=== PATIENT | female | born 1985 | race Caucasian/White ===

== ENCOUNTER 2016-09-11 05:46 | Inpatient (IN) | payer OTHER ==
[~2016-09-11] VITALS: Ht 161.3 cm; Wt 99.1 kg
[2016-09-11] MEDS ORDERED: LACTATED RINGER'S 1,000 ML IV SCH (05:58)
[2016-09-11] MEDS ORDERED: CARBOPROST 250 MCG INJ IM PRN ×2 (06:00→16:30)
[2016-09-11] MEDS ORDERED: OXYTOCIN 30 UNITS/LR 500 ML IV PRN ×2 (06:00→16:30)
[2016-09-11] MEDS ORDERED: MISOPROSTOL 200 MCG TAB PR PRN ×2 (06:00→16:30)
[2016-09-11] MEDS ORDERED: CEFAZOLIN 2 GM/50 ML (PMX) 50 ML IV SCH (06:00)
[2016-09-11] MEDS ORDERED: METHYLERGONOVINE 0.2 MG INJ IM PRN ×2 (06:00→16:30)
[2016-09-11 06:01] VITALS: Ht 161.3 cm; Wt 99.1 kg
[2016-09-11 06:07] VITALS: BP 126/69; PULSE 77; RESP 18
[2016-09-11 07:13] LABS: ADD SCAN DIFF NO
[2016-09-11 07:16] LABS: BASOPHILS % 0.3 % (0.0-2.0); EOSINOPHILS # 0.1 10^3/ul (0.0-0.5); EOSINOPHILS % 1.4 % (0.0-7.0); HEMATOCRIT 36.3 % (37.0-47.0); HEMOGLOBIN 12.3 g/dl (12.0-16.0); LYMPHOCYTES # 2.3 10^3/ul (0.8-2.9); LYMPHOCYTES % 25.9 % (15.0-51.0); MEAN CORPUSCULAR HEMOGLOBIN 29.5 pg (29.0-33.0); MEAN CORPUSCULAR HGB CONC 33.9 g/dl (32.0-37.0); MEAN CORPUSCULAR VOLUME 87.1 fl (82.0-101.0); MEAN PLATELET VOLUME 11.2 fl (7.4-10.4); MONOCYTE # 0.7 10^3/ul (0.3-0.9); MONOCYTES % 7.5 % (0.0-11.0); NEUTROPHIL # 5.6 10^3/ul (1.6-7.5); NEUTROPHILS % 64.2 % (39.0-77.0); PLATELET COUNT 201 10^3/UL (140-415); RED BLOOD COUNT 4.17 10^6/ul (4.20-5.40); RED CELL DISTRIBUTION WIDTH 13.2 % (11.5-14.5); WHITE BLOOD COUNT 8.7 10^3/ul (4.8-10.8)
[2016-09-11 07:33] LABS: INR 0.96; PROTIME 12.8 Sec (12.2-14.2)
[2016-09-11 07:34] LABS: PARTIAL THROMBOPLASTIN TIME 27.6 Sec (25.0-35.0)
[2016-09-11] MEDS ORDERED: ONDANSETRON 4 MG INJ IV STA (11:00)
[2016-09-11] MEDS ORDERED: CITRIC ACID/SODIUM CITRATE 15 ML CUP PO ONE ×2 (11:00)
[2016-09-11] MEDS ORDERED: METOCLOPRAMIDE 10 MG INJ IV ONE (11:00)
[2016-09-11] MEDS ORDERED: morphine SULFATE/PF (10 MG/10 ML) INJ ONE (12:07)
[2016-09-11] MEDS ORDERED: FENTAnyl 50 MCG/ML VIAL ONE (12:07)
[2016-09-11] MEDS ORDERED: EPHEDrine SULFATE 50 MG/5 ML SYG ONE (12:21)
[2016-09-11] MEDS ORDERED: PHENYLephrine (100 MCG/ML) 5ML SYG ONE (12:22)
[2016-09-11] MEDS ORDERED: HYDROmorphONE 1 MG/ML SYG IV PRN ×2 (13:00)
[2016-09-11] MEDS ORDERED: DIPHENHYDRAMINE 50 MG INJ IV PRN (13:00)
[2016-09-11] MEDS ORDERED: NALOXONE (0.4 MG/ML) INJ IV PRN (13:00)
[2016-09-11] MEDS ORDERED: ONDANSETRON 4 MG INJ IV PRN (13:00)
[2016-09-11] MEDS: OXYTOCIN 30 UNITS/LR 500 ML IV SCH ×3 (15:02→16:29)
--- NOTE | 2016-09-11 15:23 | HP ---
Date/Time of Note Date/Time of Note DATE: 09/11/16 TIME: 15:04 OB - History Hx of Present Free Text/Dictation 30 years old female 4 para 2 AB 1 history of 1 previous section admitted to [facility] at 39 weeks gestation for repeat this patient has been under the care of [facility] and her was not complicated with gestational diabetes - induced hypertension or any other surgical or medical condition. 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12 total ,of 4 ,one normal vaginal delivery , one one termination no other surgery or hospitalization recorded in the patient's records Infectious history positive tests for chlamydia and gonorrhea 3 weeks ago treated with antibiotics Genetic history negative for hereditary disease Allergy denies allergy to any known medication Social habit denies a smoking or drinking or using illicit drugs Review of system within normal Physical examination 5 feet 4 218 pounds total weight gain during the 31 pound Blood pressure 106/51 pulse 81 respiration 18 temperature 98.1 Head ears nose and throat negative Neck supple no thyromegaly Lungs clear to P&A Heart normal sinus rhythm no murmur Abdomen fundal height 37 cm from symphysis pubis heart rate category 1 Pelvic examination deferred Extremities no edema no varicosities Impression Intrauterine at 39 weeks gestation history of previous section patient has signed consent for repeat section she is aware of the complication of surgery including bowel bladder injury infection hemorrhage and hematoma and she is willing to go ahead with this procedure Chief Complaint: 39 weeks history of previous Estimated Due Date: Sep 18, 2016 : 4 Para: 2 Therapeutic : 1 Care: Limited Care Ultrasounds: Normal mid trimester US Obstetrical Complications: None Medical Complications: None Past Family/Social History * Past Medical, Surgical, Family and Obstetric Histories reviewed from chart. Rubella: immune RPR/VDRL: Negative GBS Status: Negative HBsAG: Negative OB Admission Exam Vital Signs Vital Signs Vital Signs Date Time Temp Pulse Resp B/P Pulse Ox O2 Delivery O2 Flow Rate FiO2 09/11/16 06:07 98.6 77 18 126/69 Room Air Physical Exam HEENT: WNL Heart: Rhythm Normal Lungs: Clear, Equal Abdomen: WNL Extremities: Normal Reflexes: Normal Cervical Dilatation: None Effacement: 0% Heart Rate: 130's Accelerations: Accelerations Present Decelerations: No Decelerations Contractions on Admission: None Last 72 hours Lab Results CBC & BMP 09/11/16 06:15 OB Assessment/Plan Reason for admission: other (Repeat section) NASRIN FISCHER MD Sep 11, 2016 15:21
--- NOTE | 2016-09-11 15:57 | OPR ---
DATE OF OPERATION: PREOPERATIVE DIAGNOSES: 1. Intrauterine at 39 weeks' gestation. 2. History of previous section. POSTOPERATIVE DIAGNOSES 1. Intrauterine at 39 weeks' gestation. 2. History of previous section. PROCEDURE: Repeat transverse low cervical section. SURGEON: Nasrin Fischer MD CLINICAL SUPPORT NURSE: Mirza Sandoval MD ANESTHESIA: Spinal. ANESTHESIOLOGIST: Dr. Young. FINDINGS: Live baby girl, Apgars 8 and 9. Baby weighed 8 pounds, equal to 3625 grams. DETAILS OF THE PROCEDURE: Under satisfactory spinal anesthesia, the patient was prepped and draped and placed in supine position, tilted to the left. Pfannenstiel incision was made, carried through the subcutaneous tissue. Bleeders brought under control with electrocautery. Fascia incised to the length of the incision. Rectus muscle divided in midline. Peritoneum exposed, entered through a t ransverse incision. Exploration of abdomen. Gravid uterus at term, normal appearing tubes and ovar ies, extremely thinned out lower segment of the uterus to the thickness of 1 mm. Bladder flap gentl y was developed and a transverse incision was made in the lower segment of the uterus. Amniotic sac ruptured. Clear amniotic fluid noted. Live baby girl was delivered from unengaged vertex. Nasal oropharyngeal suction was performed. Baby handed to the team for immediate attention. Pat ient received 20 units of Pitocin. Placenta delivered manually intact. Uterine cavity cleaned with wet sponge and drainage established. Uterus closed in 2 layers using Monocryl #1 in continuous fas hion. Peritoneal cavity irrigated with warm saline. Sponge, needle and instrument reported to be c orrect. Abdominal peritoneum closed with 2-0 chromic catgut continuously. Rectus muscle approximat ed with few interrupted 2-0 chromic catgut. Fascia closed with PDS #1 in continuous fashion. Subcu taneous tissue approximated with several interrupted 2-0 chromic catgut. Skin closed with emiliano. Estimated blood loss 700 mL. Urine bag contained 300 mL of clear urine. Patient tolerated procedu re well, transferred to recovery room in a good condition. Dictated By: NASRIN FISCHER MD HF/NTS Conf#: [id number] DID#: [id number]
[2016-09-11] MEDS: KETOROLAC 30 MG INJ IV PRN (15:59)
[2016-09-11] MEDS ORDERED: ACETAMINOPHEN/CODEINE #3 TAB PO PRN ×2 (16:30)
[2016-09-11] MEDS ORDERED: OXYCODONE/ACETAMINOPHEN (5/325) TAB PO PRN (16:30)
[2016-09-11] MEDS ORDERED: CEFAZOLIN 1 GM/50 ML (PMX) 50 ML IVPB SCH ×2 (16:30→20:00)
[2016-09-11] MEDS ORDERED: LANOLIN 7 GM TUBE TOP PRN (16:30)
[2016-09-11 17:00] VITALS: BP 126/67; PULSE 94; RESP 18
[2016-09-11] MEDS: IBUPROFEN 600 MG TAB PO SCH (17:12)
[2016-09-11 17:32] VITALS: BP 127/66; PULSE 94
[2016-09-11 18:00] VITALS: BP 123/65; PULSE 94
[2016-09-11 18:39] VITALS: BP 123/65; PULSE 79
[2016-09-11 20:00] VITALS: BP 136/66; PULSE 80; RESP 18
[2016-09-11] MEDS: SENNA/DOCUSATE NA (8.6MG/50MG) TAB PO SCH (21:00)
[2016-09-12] VITALS: BP 101/60; PULSE 79; RESP 18
[2016-09-12] MEDS: OXYTOCIN 30 UNITS/LR 500 ML IV SCH ×4 (00:29→08:29)
[2016-09-12] MEDS: KETOROLAC 30 MG INJ IV PRN ×2 (01:08→10:52)
[2016-09-12 04:00] VITALS: BP 111/52; PULSE 84; RESP 18
[2016-09-12 08:09] LABS: ADD SCAN DIFF NO
[2016-09-12 08:10] VITALS: BP 109/55; PULSE 93; RESP 19
[2016-09-12 08:16] LABS: BASOPHILS % 0.4 % (0.0-2.0); EOSINOPHILS # 0.1 10^3/ul (0.0-0.5); EOSINOPHILS % 1.7 % (0.0-7.0); HEMATOCRIT 30.6 % (37.0-47.0); HEMOGLOBIN 10.2 g/dl (12.0-16.0); LYMPHOCYTES # 1.3 10^3/ul (0.8-2.9); LYMPHOCYTES % 16.6 % (15.0-51.0); MEAN CORPUSCULAR HEMOGLOBIN 29.4 pg (29.0-33.0); MEAN CORPUSCULAR HGB CONC 33.3 g/dl (32.0-37.0); MEAN CORPUSCULAR VOLUME 88.2 fl (82.0-101.0); MEAN PLATELET VOLUME 10.5 fl (7.4-10.4); MONOCYTE # 0.6 10^3/ul (0.3-0.9); MONOCYTES % 7.7 % (0.0-11.0); NEUTROPHIL # 5.6 10^3/ul (1.6-7.5); NEUTROPHILS % 73.2 % (39.0-77.0); PLATELET COUNT 162 10^3/UL (140-415); RED BLOOD COUNT 3.47 10^6/ul (4.20-5.40); RED CELL DISTRIBUTION WIDTH 13.3 % (11.5-14.5); WHITE BLOOD COUNT 7.6 10^3/ul (4.8-10.8)
[2016-09-12] MEDS: SENNA/DOCUSATE NA (8.6MG/50MG) TAB PO SCH ×2 (10:52→21:04)
--- NOTE | 2016-09-12 11:41 | PN ---
Date/Time of Note Date/Time of Note DATE: 09/12/16 TIME: 11:40 OB Subjective Subjective Subjective Post day 1 Afebrile vital signs are stable abdomen soft mildly distended good bowel sounds incision dry lochia moderate extremity normal ambulation encouraged diet as tolerated. Laboratory Tests Test 09/12/16 08:05 White Blood Count 7.610^3/ul Red Blood Count 3.4710^6/ul Hemoglobin 10.2g/dl Hematocrit 30.6% Mean Corpuscular Volume 88.2fl Mean Corpuscular Hemoglobin 29.4pg Mean Corpuscular Hemoglobin Concent 33.3g/dl Red Cell Distribution Width 13.3% Platelet Count 95161^3/UL Mean Platelet Volume 10.5fl Neutrophils % 73.2% Lymphocytes % 16.6% Monocytes % 7.7% Eosinophils % 1.7% Basophils % 0.4% Nucleated Red Blood Cells % 0.0/100WBC Neutrophils # 5.610^3/ul Lymphocytes # 1.310^3/ul Monocytes # 0.610^3/ul Eosinophils # 0.110^3/ul Basophils # 0.010^3/ul Nucleated Red Blood Cells # 0.010^3/ul Current Medications Medications (Trade) Dose Ordered Sig/Ramon Route PRN Reason Start Time Stop Time Status Last Admin Dose Admin Lactated Ringer's 1,000 ml @ 125 mls/hr Q8H IV 09/11/16 05:58 09/11/16 16:34 DC 09/11/16 11:45 Cefazolin Sodium/ Dextrose 50 ml @ 100 mls/hr ONCE IV 09/11/16 06:00 09/11/16 16:34 DC Oxytocin/Lactated Ringer's 500 ml @ 125 mls/hr ONCE IV 09/11/16 06:00 09/11/16 16:34 DC 09/11/16 16:01 Oxytocin/Lactated Ringer's 500 ml @ 0 mls/hr ONCE PRN IV For Hemorrhage Management 09/11/16 06:00 09/11/16 16:34 DC Methylergonovine Maleate (Methergine) 0.2 mg ONCE PRN IM VAGINAL BLEEDING 09/11/16 06:00 09/11/16 16:34 DC Carboprost Tromethamine (Hemabate) 250 mcg ONCE PRN IM VAGINAL BLEEDING 09/11/16 06:00 09/11/16 16:34 DC Misoprostol (Cytotec) 1,000 mcg ONCE PRN MS VAGINAL BLEEDING 09/11/16 06:00 09/11/16 16:34 DC Citric Acid/ Sodium Citrate (Bicitra) 15 ml ONCE ONCE PO 09/11/16 11:00 09/11/16 11:07 DC 09/11/16 11:45 Citric Acid/ Sodium Citrate (Bicitra) 15 ml ONCE ONCE PO 09/11/16 11:00 09/11/16 11:07 DC 09/11/16 11:45 Ondansetron HCl (Zofran Inj) 4 mg ONCE STAT IV 09/11/16 11:00 09/11/16 11:07 DC 09/11/16 11:45 Metoclopramide HCl (Reglan) 10 mg ONCE ONCE IV 09/11/16 11:00 09/11/16 11:07 DC 09/11/16 11:45 Morphine Sulfate (Duramorph) 10 mg STK-MED ONCE .ROUTE 09/11/16 12:07 09/11/16 12:08 DC Fentanyl (Sublimaze) 100 mcg STK-MED ONCE .ROUTE 09/11/16 12:07 09/11/16 12:08 DC Ephedrine Sulfate 50 mg STK-MED ONCE .ROUTE 09/11/16 12:21 09/11/16 12:22 DC Phenylephrine HCl (Derian-Synephrine Inj Syg) 500 mcg STK-MED ONCE .ROUTE 09/11/16 12:22 09/11/16 12:23 DC Naloxone HCl (Narcan) 0.1 mg Q2M PRN IV FOR RESP RATE 8 OR LESS 09/11/16 13:00 09/12/16 12:59 Ketorolac Tromethamine (Toradol) 30 mg Q6H PRN IV PAIN 09/11/16 13:00 09/12/16 12:59 09/12/16 10:52 Hydromorphone HCl (Dilaudid) 0.2 mg Q3H PRN IV PAIN LEVEL 1-5 09/11/16 13:00 09/12/16 12:59 Hydromorphone HCl (Dilaudid) 0.4 mg Q3H PRN IV PAIN LEVEL 6-10 09/11/16 13:00 09/12/16 12:59 Diphenhydramine HCl (Benadryl) 25 mg Q6H PRN IV ITCHING 09/11/16 13:00 09/12/16 12:59 09/12/16 01:45 Ondansetron HCl (Zofran Inj) 4 mg Q6H PRN IV NAUSEA AND/OR VOMITING 09/11/16 13:00 09/12/16 12:59 Acetaminophen/ Codeine Phosphate (Tylenol No.3) 1 tab Q4H PRN PO PAIN LEVEL 4-6 09/11/16 16:30 Acetaminophen/ Codeine Phosphate (Tylenol No.3) 2 tab Q4H PRN PO PAIN LEVEL 7-10 09/11/16 16:30 Oxycodone/ Acetaminophen (Percocet (5/ 325)) 1 tab Q4H PRN PO PAIN LEVEL 4-6 09/11/16 16:30 Oxycodone/ Acetaminophen (Percocet (5/ 325)) 2 tab Q4H PRN PO PAIN LEVEL 7-10 09/11/16 16:30 Ibuprofen (Motrin) 600 mg Q6 PO 09/11/16 18:00 Simethicone (Mylicon) 160 mg Q8H PRN PO DISTENSION/GAS/BLOATING 09/11/16 16:30 Senna/Docusate Sodium (Senokot-S) 1 tab BID PO 09/11/16 21:00 09/12/16 10:52 Lanolin (Kny-X-Piixyx) 1 applic BEDSIDE MEDICATION PRN TOP BEDSIDE FOR ERICK TO NIPPLES 09/11/16 16:30 Diphtheria/ Tetanus/Acell Pertussis 0.5 ml 0.5 ml ONCE ONCE IM* 09/14/16 09:00 09/14/16 09:01 Oxytocin/Lactated Ringer's 500 ml @ 0 mls/hr ONCE PRN IV For Hemorrhage Management 09/11/16 16:30 Methylergonovine Maleate (Methergine) 0.2 mg ONCE PRN IM VAGINAL BLEEDING 09/11/16 16:30 Carboprost Tromethamine (Hemabate) 250 mcg ONCE PRN IM VAGINAL BLEEDING 09/11/16 16:30 Misoprostol 1000 mcg 1,000 mcg ONCE PRN MS VAGINAL BLEEDING 09/11/16 16:30 Cefazolin Sodium 50 ml @ 100 mls/hr ONCE IVPB 09/11/16 16:30 09/11/16 16:44 DC Oxytocin/Lactated Ringer's 500 ml @ 125 mls/hr Q4H IV 09/11/16 16:29 09/12/16 02:03 Cefazolin Sodium (Ancef 1 Gm/50 ml (Pmx)) 50 ml @ 100 mls/hr ONCE IVPB 09/11/16 20:00 09/11/16 20:29 DC 09/11/16 20:45 NASRIN FISCHER MD Sep 12, 2016 11:41
[2016-09-12 12:08] VITALS: BP 119/66; PULSE 77; RESP 19
[2016-09-12] MEDS: OXYCODONE/ACETAMINOPHEN (5/325) TAB PO PRN (13:56)
[2016-09-12] MEDS: IBUPROFEN 600 MG TAB PO SCH ×4 (13:56→23:29)
[2016-09-12 19:30] VITALS: BP 106/61; PULSE 69; RESP 19
[2016-09-13] MEDS: IBUPROFEN 600 MG TAB PO SCH ×5 (00:22→23:35)
[2016-09-13 04:00] VITALS: BP 120/64; PULSE 85; RESP 20
[2016-09-13 08:00] VITALS: BP 111/58; PULSE 87; RESP 18
[2016-09-13] MEDS: SENNA/DOCUSATE NA (8.6MG/50MG) TAB PO SCH ×2 (09:00→20:45)
--- NOTE | 2016-09-13 09:48 | PN ---
Date/Time of Note Date/Time of Note DATE: 09/13/16 TIME: 09:47 OB Subjective Subjective Subjective Post date Afebrile vital signs stable abdomen soft incision dry bowel sounds present no bowel movement extremity normal ambulation encouraged NASRIN FISCHER MD Sep 13, 2016 09:48
[2016-09-13] MEDS ORDERED: NA PHOSPHATE/BIPHOS 133 ML ENEMA PR ONE (10:00)
[2016-09-13] MEDS: OXYCODONE/ACETAMINOPHEN (5/325) TAB PO PRN ×2 (10:07→20:45)
[2016-09-13 16:00] VITALS: BP 106/53; PULSE 87; RESP 17
[2016-09-13 19:40] VITALS: BP 121/85; PULSE 86; RESP 18
[2016-09-14 04:15] VITALS: BP 142/50; PULSE 83; RESP 18
[2016-09-14] MEDS: IBUPROFEN 600 MG TAB PO SCH ×2 (06:07→12:16)
[2016-09-14 08:00] VITALS: BP 111/52; PULSE 84; RESP 18
[2016-09-14] MEDS ORDERED: DIPHTH/TET/ACEL PERTUSS (ADULT) 0.5 ML VIAL IM* ONE (09:00)
[2016-09-14] MEDS: SENNA/DOCUSATE NA (8.6MG/50MG) TAB PO SCH (09:29)
--- NOTE | 2016-09-14 10:24 | PD.PPDC ---
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
--- NOTE | 2016-09-14 10:26 | DS ---
Date/Time of Note Date/Time of Note DATE: 09/14/16 TIME: 10:24 Discharge Summary Admission/Discharge Info Admit Date/Time Sep 11, 2016 at 05:46 Discharge Date/Time September 14, 2016 1020 Final Diagnosis Post day 3 Patient Condition: Good Procedures Repeat Hx of Present Illness 39 weeks history of previous Hospital Course Satisfactory uneventful Follow-up Plan Appointment clinic in 3 days to discontinue emiliano Primary Care Provider Divine Moya Time spent on discharge: < 30 minutes NASRIN FISCHER MD Sep 14, 2016 10:26
[2016-09-14 16:00] VITALS: BP 100/54; PULSE 79; RESP 18
== END 2016-09-14 17:59 | disposition home or self-care (01) | DRG 766 ==
LOC: L-D 05:46 → PP1 16:52
PROVIDERS: ADMIT Obstetrics & Gynecology; ATTEND Obstetrics & Gynecology
PROC: 10D00Z1 Extraction of Products of Conception, Low, Open Approach (ICD-10-PCS; principal; 2016-09-11 09:00)
DX: O34.211 Maternal care for low transverse scar from previous cesarean delivery (principal); Z37.0 Single live birth; Z3A.39 39 weeks gestation of pregnancy
CPT/HCPCS: 85025; 85610; 85730; 86592; 86850; 86900; 86901; 90715; 94760; 99464; J0690; J1200; J1885; J2274; J2370; J2405; J2590; J2765; J3010; J7120

== ENCOUNTER 2018-10-05 09:42 | Inpatient (IN) | payer OTHER ==
[~2018-10-05] VITALS: Ht 165.1 cm; Wt 90.7 kg
[2018-10-05 10:00] VITALS: Ht 165.1 cm; Wt 90.7 kg
[2018-10-05] MEDS ORDERED: PREN-93 PO (10:00)
[2018-10-05 10:01] VITALS: BP 117/64; PULSE 122; RESP 18
--- NOTE | 2018-10-05 11:58 | TRIAGE ---
OB Triage Datetime Report Generated by CPN: 10/05/2018 11:58 Datetime: 10/05/2018 11:00 Stage of : OB Triage Maternal Assessment Level of Consciousness: Keenly Alert, Responsive Labor Evaluation Frequency: NONE Monitor Mode: External Resting Tone [place]: Relaxed Heart Rate FHR Baseline Rate: 150 Monitor Mode: External US Variability: Moderate 6-25 bpm Accelerations: 15X15 Decelerations: None Category: Category I Pain Assessment Pain Scale: 8 Pain Presence: Intermittent Pain Type: Cramping Pain Location: Back Pain Goal: 3 Vaginal Exam Membrane Status: Intact Vaginal Bleeding: None Datetime: 10/05/2018 09:57 Assessment Type: Triage Maternal Assessment Level of Consciousness: Keenly Alert, Responsive DTR's/Clonus: DTRs 2+; No Clonus Headache: Denies Blurred Vision: No Respiratory Effort: Unlabored; Regular Rhythm; Equal Expansion Breath Sounds, Left: Clear and Equal Breath Sounds, Right: Clear and Equal Nausea/Vomiting: Denies RUQ Epigastric Pain: Denies Lower Extremities Edema: None Degree: None Upper Extremities Edema: None Degree: None Facial Edema: None Fall Risk Assessment History of Falling: (0) No Secondary Diagnosis: (0) No Ambulatory Aid: (0) Bedrest/Nurse Assist IV Therapy: (0) No Gait: (0) Normal/Bedrest/Immobile Mental Status: (0) Oriented to Own Ability Fall Score: 0 Fall Risk Score Definition: No Risk: No action required Datetime: 10/05/2018 09:54 Monitor Mode: External Monitor Mode: External US Datetime: 10/05/2018 09:50 Time of Arrival: 10/05/2018 09:36 EGA: 35.6 Arrived By: Ambulatory Arrived From: Home Chief Complaint: PT. HERE C/O ABD. PAIN Movement: Present Contractions: Irregular Rupture of Membranes: Denies Vaginal Bleeding: None Vaginal Discharge: Denies Recent Sexual Intercouse: Denies Abdominal Trauma: Not Applicable Patient Complaints: Cramping Time Provider Notified: 10/05/2018 10:04 Provider Notified: EMILIO Initial Plan: CBC/UA/BPP/
[2018-10-05] MEDS ORDERED: LACTATED RINGER'S 1,000 ML IV SCH (12:03)
[2018-10-05] MEDS: ACETAMINOPHEN 325 MG TAB PO PRN (12:19)
[2018-10-05] MEDS ORDERED: AL HYDROX/MG HYDROX/SIMETH 30 ML CUP PO PRN (12:30)
[2018-10-05] MEDS ORDERED: CEFAZOLIN 1 GM/50 ML (PMX) 50 ML IVPB SCH (14:00)
[2018-10-05] MEDS ORDERED: MEPERIDINE 25 MG INJ IM STA (15:00)
[2018-10-05] MEDS ORDERED: MEPERIDINE 25 MG INJ IV STA (15:00)
[2018-10-05] MEDS: CEFEPIME 2GM/50 ML (PMX) 50 ML IVPB SCH (15:49)
[2018-10-05] MEDS ORDERED: ACETAMINOPHEN 1000MG/100ML IV 100 ML IVPB ONE (16:30)
[2018-10-05] MEDS: SOD CHLORIDE 0.9% 1,000 ML IV SCH ×2 (16:32→23:50)
--- NOTE | 2018-10-05 17:28 | HP ---
Date/Time of Note Date/Time of Note DATE: 10/05/18 TIME: 16:49 OB - History Hx of Present Free Text/Dictation October 05, 2018 Other Concerns: 32-year-old female with IUP at 35 weeks adn 5 days and History of prior section x 2 and complete previa in the current , presented with complaint of Left sided back pain and chills. Her clinical picture was consistent with left-sided pyelonephritis. [facility] complicated by : Late care, started care at 6 mo History of SA, Had UTOx in the past postive for Meth Complete Previa in current Past Family/Social History * Past Medical, Surgical, Family and Obstetric Histories reviewed from chart. Blood Type: A+ Rubella: not immune RPR/VDRL: Negative GBS Status: Negative HBsAG: Unknown OB Admission Exam Vital Signs Vital Signs Vital Signs Date Temp Pulse Resp B/P (MAP) Pulse Ox O2 O2 Flow FiO2 Time Delivery Rate 10/05/18 101.8 16:31 10/05/18 122 18 117/64 Room Air 10:01 (81) Physical Exam HEENT: WNL Lungs: Clear Abdomen: WNL Extremities: Other (There is CVA tenderness in the left side. No abdominal tenderness, no rebound tenderness, no guarding, no rigidity) Reflexes: Normal Cervical Dilatation: None Effacement: 0% Station: -2 Membranes: Intact Heart Rate: 150's Accelerations: Accelerations Present Varibility: Moderate Last 72 hours Lab Results CBC & BMP 10/05/18 10:37 OB Assessment/Plan Other Assessment: Pyelonephritis in the left side at 35 weeks and 6 days We will start the patient on IV antibiotics Admit the patient CBC, CMP, urine culture Continuous monitoring IV hydration Strict I's and O's KERI PINEDA MD Oct 05, 2018 17:09
--- NOTE | 2018-10-05 17:35 | CONS ---
DATE OF ADMISSION: 10/05/2018 DATE OF CONSULTATION: 10/05/2018 TYPE OF CONSULTATION: Infectious disease. REASON FOR CONSULTATION: Antibiotic management. HISTORY OF PRESENT ILLNESS: Patty Real is a pleasant 32-year-old female, who comes in now with pyel onephritis and is being seen for antibiotic management. The patient has no past medical history of h igh blood pressure, diabetes or heart disease. She has had 2 C-sections in the past. She is now 35 weeks . About 4 or 5 days ago, she developed some bloating sensation, and then 1 or 2 days a go, developed dysuria and then left-sided flank pain. Today, she came in with shaking chills. She h as been placed on Keflex prior to this and obviously this was not adequate for therapy. PAST MEDICAL HISTORY: Operations as outlined. FAMILY HISTORY: She is and has 2 children, a boy and a girl. Her mother is alive. She has 2 brothers. HABITS: She quit smoking when she found out she was at 5 months. She does not drink or abu se drugs. ALLERGIES: NONE TO PENICILLIN, SULFA OR FOODS. MEDICATIONS: Per chart. REVIEW OF SYSTEMS: As per HPI. PHYSICAL EXAMINATION: GENERAL: The patient is a well-developed, well-nourished female, who is alert, responsive, in no acu te distress. VITAL SIGNS: Stable. She is currently afebrile. SKIN: Without generalized rash. HEENT: Within normal limits. NECK: Supple. LYMPH NODES: None palpable. CHEST: Decreased breath sounds at the bases. HEART: Tachycardic, regular rhythm. ABDOMEN: Soft, 35 weeks , nontender. She has left-sided flank pain. EXTREMITIES: Without cyanosis, clubbing, or edema. RECTAL AND GENITAL: Deferred. NEUROLOGIC: No focal neurological abnormalities. IMPRESSION AND PLAN: The patient has obviously had shaking chills, so we have to worry about the pos sibility of sepsis. She had 1 blood culture and urine. After discussing the case with myself, she w as placed on cefepime 1 gram q.12. I want to thank Dr. Page, for asking me to see this wendy lad y in consultation. Dictated By: SOURAV SAMUEL MD, JD/MINOO Conf#: [id number] DID#: [id number] CC: JUSTEN JHAVERI MD;*[facility]*
--- NOTE | 2018-10-05 20:32 | PN ---
Date/Time of Note Date/Time of Note DATE: 10/05/18 TIME: 20:29 OB Subjective Subjective Subjective 32-year-old female with IUP at 35 weeks adn 5 days with estimated date of delivery November 03, 2018 and History of prior section x 2 and complete previa in the current admitted with diagnosis of acute pyelonephritis and sepsis with lactic acid 2.2 She is currently on IV antibiotics per ID recommendation Patient reports positive movement, denies vaginal bleeding and leaking fluid, denies uterine contractions OB Objective Objective Objective VS - Last 72 Hours, by Label Date Temp Pulse Resp B/P (MAP) Pulse Ox O2 O2 Flow FiO2 Time Delivery Rate 10/05/18 98.8 17:16 10/05/18 101.8 16:31 10/05/18 99.3 122 18 117/64 Room Air 10:01 (81) O2 sat 97% on room air heart rate tracing category 1 [place] none PROCEDURE: OB ultrasound for biophysical profile CLINICAL INDICATION: Contractions. TECHNIQUE: Multiple sonographic images of the pelvis were obtained. Transabdominal view of the gravid uterus are available for review. The images were reviewed on a PACS workstation. COMPARISON: OB ultrasound 08/23/2018 FINDINGS: breathing movement = 2/2 tone = 2/2 motion = 2/2 Quantitative amniotic fluid volume = 2/2 MOHAN = 9.4 cm Single live intrauterine with cardiac activity at 166 beats per minute. There is a complete placenta previa. IMPRESSION: 1. Single living intrauterine gestation in cephalic position. 2. Biophysical profile = 8/8. 3. MOHAN = 9.4 cm. 4. Complete placenta previa. RPTAT: [facility] Physician Zac Date Time Electronically viewed and signed by Physician Zac on 10/05/2018 11:36 JH/ CC: JUSTEN JHAVERI [id number] PROCEDURE: Retroperitoneal US CLINICAL INDICATION: pylo TECHNIQUE: Multiple sonographic images of the retroperitoneum were obtained. The images were reviewed on a PACS workstation. COMPARISON: No prior studies are available for comparison. FINDINGS: Bilateral kidneys demonstrate no cortical thinning. Normal echogenicity nelia aterally. The right kidney measures 11.8 cm. The left kidney measures 13.9 cm. No kidney stones are visualized. Mild left hydronephrosis.. The urinary bladder is normal. IMPRESSION: Mild left hydronephrosis. No nephrolithiasis RPTAT: PP Zahraa Colon, Physician Date Time Electronically viewed and signed by Zahraa Colon, Physician on 10/05/2018 16:20 ME/ CC: KERI PINEDA MD [id number] PROCEDURE: XR Chest, 1 View CLINICAL INDICATION: Cough. TECHNIQUE: Frontal view of the chest. COMPARISON: None FINDINGS: LUNGS: Unremarkable. No consolidation. PLEURAL SPACE: Unremarkable. No pneumothorax. HEART: Unremarkable. No cardiomegaly. MEDIASTINUM: Unremarkable. BONES/JOINTS: Unremarkable. IMPRESSION: No acute cardiopulmonary disease demonstrated. RPTAT: [facility] Heather Al, Physician [employer] Date Time Electronically viewed and signed by Heather Al, Physician [employer] on 10/05/2018 21:05 RmC/ CC: TERESA BERMAN MD [phone] OB Assessment/Plan Reason for admission: other (Acute pyelonephritis/sepsis and complete previa with prior C-sections x2) Other plan: Patient still tachycardic although not tachypneic Blood cultures x2 and urine cultures pending Chest x-ray and EKG ordered and within normal limits Continue with ID recommendations for antibiotic management We will obtain formal consultation with perinatology regarding recommendations for the timing of delivery Dr. Mai has been contacted regarding this patient and she will be dictating a note shortly Copies To: CC: JUSTEN JHAVERI ; TERESA BERMAN MD Oct 05, 2018 20:32
[2018-10-06] MEDS ORDERED: DIPHENHYDRAMINE 25 MG CAP PO ONE
--- NOTE | 2018-10-06 00:39 | CONS ---
DATE OF ADMISSION: 10/05/2018 DATE OF CONSULTATION: 10/05/2018 HISTORY OF PRESENT ILLNESS: The patient apparently was admitted today secondary to flank pain. She was subsequently diagnosed with pyelonephritis. At the time of admission, per report, she should not have any fever; however, after some time she develops fever. She was initially placed on Ancef. Ho wever, after she started having fever, tachycardia, followed by tachycardia. Infectious Diseas e was consulted. The antibiotic was changed. Dr. Monzon was not sure, but it was changed to a diffe rent antibiotic IV. heart tone at the time of maternal severe tachycardia was tachycardic; how ever, around 10 or so. I looked at the strip, the heart rate is category 1. The question I was asked was essentially for the maternal indication or the indication for delivery. Please do note that condition is dependent on maternal condition and delivery is indicated onl y if the fetus has nonreassuring heart tones and mother is stable. However, please do use your own judgment in terms of if there are other indications that you will feel that it is necessary for delivery do consider them and call for further questions, but overall rule of thumb is that maternal condition once stable, condition will stabilize as it has been shown in this patient. So stabi lize the patient first. If the fetus does not respond, then delivery can be attempted. lactic acid, I was told with the second call around 10:30 that it has been 2.3 at the time of diagnosis. A haris 2 is considered high and indicative of sepsis. I was asked a question per Dr. Monzon around 4:3 0 whether IV fluid should be increased to 200 mL an hour per ID recommendations. At that time I memo mmended no because I was not aware of the elevated lactic acid. However, I spoke to Dr. Prado this evening and I asked her to repeat the lactic acid. If the lactic acid is still above 2, then increa se IV fluids to 175 mL an hour for 3 hours and then repeat the lactic acid as soon. As the lactic ac id is normalized, go back to 125 mL an hour. In the meantime, please do note that she is an d with the pyelonephritis and sepsis, risk of pulmonary edema is increased very much, so please monit or the patient's urine output, patient's O2 sat very closely. Lastly, creatinine should be checked a nd if any. Otherwise, continue with our plan of care and ask ID if any pertinent questions. Dictated By: NILTON ACKERMAN/MINOO Conf#: [id number] DID#: [id number]
[2018-10-06] MEDS: CEFEPIME 2GM/50 ML (PMX) 50 ML IVPB SCH ×2 (04:09→13:42)
[2018-10-06] MEDS: ACETAMINOPHEN 325 MG TAB PO PRN ×3 (08:12→22:11)
[2018-10-06] MEDS: SOD CHLORIDE 0.9% 1,000 ML IV SCH ×2 (08:13→16:59)
--- NOTE | 2018-10-06 14:21 | CONS ---
Assessment/Plan Assessment/Plan Hospital Course (Demo Recall) Patient is alert and feels better today no fevers overnight urine culture growing gram-negative rods she is on cefepime physical examination: Obese well-developed middle-aged woman in no distress head atraumatic normocephalic neck is supple chest rise symmetrical breath sounds clear heart S1-S2 abdomen soft bowel sounds present extremities without cyanosis Assessment: 32-year-old 35 weeks woman admitted with acute pyelonephritis, currently on appropriate antibiotic regimen and improving, will await for final cultures Consultation Date/Type/Reason Admit Date/Time Oct 05, 2018 at 11:30 Initial Consult Date Type of Consult id Date/Time of Note DATE: 10/06/18 TIME: 14:21 Exam/Review of Systems Exam Vitals Vital Signs Date Temp Pulse Resp B/P (MAP) Pulse Ox O2 O2 Flow FiO2 Time Delivery Rate 10/05/18 98.8 17:16 10/05/18 122 18 117/64 Room Air 10:01 (81) Intake and Output 10/05/18 10/05/18 10/06/18 1515:00 23:00 07:00 IntakeIntake Total 50 ml 1550 ml 2240 ml OutputOutput Total 1850 ml 1400 ml BalanceBalance 50 ml -300 ml 840 ml Results Result Diagram: 10/05/182 10/05/18 2232 Results 24hrs Laboratory Tests Test 10/05/18 16:25 10/05/18 22:32 10/06/18 06:55 Sodium Level 134 L 137 Potassium Level 3.3 L 3.9 Chloride Level 108 109 Carbon Dioxide Level 19 L 20 L Anion Gap 7 8 Blood Urea Nitrogen 6 L 6 L Creatinine 0.49 0.38 L Est Glomerular Filtrat > 60 > 60 Rate mL/min Glucose Level 125 111 Lactic Acid Level 2.2 *H 0.9 Calcium Level 8.3 L 8.7 White Blood Count 8.8 Red Blood Count 3.71 L Hemoglobin 10.8 L Hematocrit 32.2 L Mean Corpuscular Volume 86.8 Mean Corpuscular Hemoglobin 29.1 Mean Corpuscular 33.5 Hemoglobin Concent Red Cell Distribution Width 13.5 Platelet Count 190 Mean Platelet Volume 10.1 Immature Granulocytes % 0.900 H Neutrophils % 79.3 H Lymphocytes % 9.7 L Monocytes % 9.4 Eosinophils % 0.5 Basophils % 0.2 Nucleated Red Blood Cells % 0.0 Immature Granulocytes # 0.080 H Neutrophils # 7.0 Lymphocytes # 0.9 Monocytes # 0.8 Eosinophils # 0.0 Basophils # 0.0 Nucleated Red Blood Cells # 0.0 Total Bilirubin 0.3 Direct Bilirubin 0.00 Indirect Bilirubin 0.3 Aspartate Amino Transf (AST/SGOT) 20 Alanine 15 Aminotransferase (ALT/SGPT) Alkaline Phosphatase 126 H Total Protein 5.6 L Albumin 2.8 L Globulin 2.80 Albumin/Globulin Ratio 1.00 Lab Scanned Report REFERENCE LAB Medications Medication Current Medications Ferrous Sulfate (Ferrous Sulfate (Ec)) 325 mg DAILY PO ; Start 10/06/18 at 09:00 Acetaminophen (Tylenol Tab) 650 mg Q4H PRN PO .PAIN OR TEMP Last administered on 10/06/18at 08:12; Admin Dose 650 MG; Start 10/05/18 at 12:30 Al Hydrox/Mg Hydrox/Simethicone (Mag-Al Plus) 30 ml Q6H PRN PO .GI UPSET; Start 10/05/18 at 12:30 Cefepime HCl 50 ml @ 100 mls/hr Q12 IVPB Last administered on 10/06/18at 13:42; Admin Dose 100 MLS/HR; Start 10/05/18 at 15:30 Sodium Chloride 1,000 ml @ 120 mls/hr Q8H20M IV Last administered on 10/06/18at 08:13; Admin Dose 120 MLS/HR; Start 10/05/18 at 16:00 DENNYS BOYKIN NP Oct 06, 2018 14:21
--- NOTE | 2018-10-06 16:56 | QN ---
Documentation Comment patient ffels much better today had spiking fever last time at 1600 on 10/05/18 no more febrile episode no c/o uterine contaction or vaginal bleeding CAT I tracing CVA left nub card tender mild right neg CBC 8800 yesterday urine culture positive gram neg mayra antibiotic change to 4th generation cefepime lactic acid down to 0.9 from 2.2 A 35w + complete placenta previa with x2 previous c/s acute pyelonephritis P continue cefepime GERALD MEJIA MD Oct 06, 2018 16:56
[2018-10-06] MEDS: FERROUS SULFATE (EC) 325 MG TAB PO SCH (22:10)
[2018-10-07] MEDS: SOD CHLORIDE 0.9% 1,000 ML IV SCH ×2 (02:37→10:45)
[2018-10-07] MEDS: CEFEPIME 2GM/50 ML (PMX) 50 ML IVPB SCH (03:55)
--- NOTE | 2018-10-07 04:33 | CONS ---
DATE OF ADMISSION: 10/05/2018 DATE OF CONSULTATION: 10/06/2018 HISTORY OF PRESENT ILLNESS: The patient is a 32-year-old at 36 weeks today presented on wit h back pain and some chills. She was presumptively diagnosed with pyelo, placed on Ancef. However, around 4:00 she had a high fever and she had very bad chills. ID was consulted, Ancef was discontinu ed, another IV antibiotic was started. Her lactic acid at that time was 2.9, which is elevated; montemayor ayad, after around 11, it was repeated and it was 0.9. There was no evidence of end organ damage dise ase either. Currently, the patient is feeling much better. Her last fever and only fever really was about 4:00 p .m. yesterday. PAST MEDICAL HISTORY: Significant for pyelonephritis, x7. She denies any history of kidney disease and it is important to note that none has been with . PHYSICAL EXAMINATION: VITAL SIGNS: There is currently no fever. Blood pressure is normal. On physical exam: There is a left CVA tenderness. heart tone is reassuring, no contractions. Labs as mentioned above. Urinalysis shows 100,000 of an organism, but sensitivity is pending. IMPRESSION: 1. Intrauterine at 36 weeks with pyelonephritis, severe, on antibiotics, feeling better; h owever, there is slight CVA tenderness existing. 2. Multiple pyelonephritis, not related to prior . Also, placenta previa. RECOMMENDATIONS: In-house management 48 hours after the last fever and after the CVA tenderness has resolved after which she can be discharged home to finish total 14-day course of p.o. antibiotics. Delivery at 37 weeks via is recommended and contact me with any further questions. Dictated By: NILTON ACKERMAN/MINOO Conf#: [id number] DID#: [id number]
[2018-10-07] MEDS: ACETAMINOPHEN 325 MG TAB PO PRN ×2 (08:59→19:32)
[2018-10-07] MEDS: FERROUS SULFATE (EC) 325 MG TAB PO SCH (08:59)
--- NOTE | 2018-10-07 10:07 | CONS ---
Assessment/Plan Assessment/Plan Hospital Course (Demo Recall) Patient is alert and feels better, s/p fever yesterday urine culture growing E coli Abx: cefepime physical examination: Obese well-developed middle-aged woman in no distress head atraumatic normocephalic neck is supple chest rise symmetrical breath sounds clear heart S1-S2 abdomen soft bowel sounds present extremities without cyanosis Assessment: 32-year-old 35 weeks woman admitted with acute pyelonephritis, will change abx to Ancef and anticipate dc on oral Keflex to complete [address] Araiza Consultation Date/Type/Reason Admit Date/Time Oct 05, 2018 at 11:30 Initial Consult Date Type of Consult id Date/Time of Note DATE: 10/07/18 TIME: 10:06 Exam/Review of Systems Exam Vitals Vital Signs Date Temp Pulse Resp B/P (MAP) Pulse Ox O2 O2 Flow FiO2 Time Delivery Rate 10/06/18 97.9 22:11 10/05/18 122 18 117/64 Room Air 10:01 (81) Intake and Output 10/06/18 10/06/18 10/07/18 1515:00 23:00 07:00 IntakeIntake Total 480 ml 1950 ml 480 ml OutputOutput Total 900 ml 3800 ml 1450 ml BalanceBalance -420 ml -1850 ml -970 ml Results Result Diagram: 10/05/18223110/05/182 Medications Medication Current Medications Ferrous Sulfate (Ferrous Sulfate (Ec)) 325 mg DAILY PO Last administered on 10/07/18at 08:59; Admin Dose 325 MG; Start 10/06/18 at 09:00 Acetaminophen (Tylenol Tab) 650 mg Q4H PRN PO .PAIN OR TEMP Last administered on 10/07/18at 08:59; Admin Dose 650 MG; Start 10/05/18 at 12:30 Al Hydrox/Mg Hydrox/Simethicone (Mag-Al Plus) 30 ml Q6H PRN PO .GI UPSET; Start 10/05/18 at 12:30 Cefepime HCl 50 ml @ 100 mls/hr Q12 IVPB Last administered on 10/07/18at 03:55; Admin Dose 100 MLS/HR; Start 10/05/18 at 15:30 Sodium Chloride 1,000 ml @ 120 mls/hr Q8H20M IV Last administered on 10/07/18at 02:37; Admin Dose 120 MLS/HR; Start 10/05/18 at 16:00 DENNYS BOYKIN NP Oct 07, 2018 10:07
[2018-10-07] MEDS: CEFAZOLIN 1 GM/50 ML (PMX) 50 ML IVPB SCH ×2 (14:10→21:33)
--- NOTE | 2018-10-07 16:30 | PN ---
Date/Time of Note Date/Time of Note DATE: 10/07/18 TIME: 16:26 OB Subjective Subjective Subjective Patient seen and examined. She states good movement. She denies nausea, vomiting, shortness of breath, chest pain, abdominal pain between contractions, headache, visual changes, vaginal bleeding or LOF. General: Patient appears well, alert and oriented, NAD, appropriate mood and affect ABD: gravid, soft, non-tender. Back: No CVA tenderness (B/L) LE: Mild edema. No clubbing, cyanosis, edema, thigh or calf tenderness bilaterally FHT: 135 bpm , moderate variability with acceleration, no deceleration-category I Contractions: None 32 years old 023 with single intrauterine at 36 weeks and 1 day with pyelonephritis and history of 2 previous delivery - FHR: Reassuring. No sign of metabolic acidosis- Category I - Contractions: None. - She has received Ancef for 3days. Currently has no CVA tenderness or fever - She would like to be discharged home - Continue Keflex 500 mg every 8 hours - Prescription and instruction given. - Follow-up in 2-3 days in clinic - Sign and symptom of labor, preeclampsia and kick count discuss ed in detail with patient. She expressed understanding. All of her questions answered. OB Objective Objective Objective General: Patient appears well, alert and oriented, NAD, appropriate mood and affect ABD: gravid, soft, non-tender. Back: No CVA tenderness (B/L) LE: Mild edema. No clubbing, cyanosis, edema, thigh or calf tenderness bilaterally FHT: 135 bpm , moderate variability with acceleration, no deceleration-category I Contractions: None OB Assessment/Plan Other plan: 32 years old 023 with single intrauterine at 36 weeks and 1 day with pyelonephritis and history of 2 previous delivery - FHR: Reassuring. No sign of metabolic acidosis- Category I - Contractions: None. - She has received Ancef for 3days. Currently has no CVA tenderness or fever - She would like to be discharged home - Continue Keflex 500 mg every 8 hours - Prescription and instruction given. - Follow-up in 2-3 days in clinic - Sign and symptom of labor, preeclampsia and kick count discussed in detail with patient. She expressed understanding. All of her questions answered. JUSTEN JHAVERI Oct 07, 2018 16:30
--- NOTE | 2018-10-07 16:31 | DS ---
Date/Time of Note Date/Time of Note DATE: 10/07/18 TIME: 16:30 Obstetrical Discharge Record Final Diagnosis Final Diagnosis: not delivered Other Final Diagnosis 32 years old 023 with single intrauterine at 36 weeks and 1 day with pyelonephritis and history of 2 previous delivery - FHR: Reassuring. No sign of metabolic acidosis- Category I - Contractions: None. - She has received Ancef for 3days. Currently has no CVA tenderness or fever - She would like to be discharged home - Continue Keflex 500 mg every 8 hours - Prescription and instruction given. - Follow-up in 2-3 days in clinic - Sign and symptom of labor, preeclampsia and kick count discussed in detail with patient. She expressed understanding. All of her questions answered. Condition on Discharge Physical Assessment Voiding: Yes Bowel Movement: Yes Breast: Soft, non-tender Fundus: Firm Calf Tenderness: No Patient Condition: Stable JUSTEN JHAVERI Oct 07, 2018 16:31
[2018-10-07] MEDS ORDERED: BETAMET NA PHOS/AC(6 MG/ML) 2 ML INJ SYG IM SCH (18:00)
--- NOTE | 2018-10-08 10:09 | RADRPT ---
Vent Rate: 108 bpm RR Interval: 556 msec GA Interval: 143 msec QRS Duration: 81 msec QT Interval: 341 msec QTC Interval: 457 msec P-R-T [place]: 49 - 58 - 27 degrees Sinus tachycardia...rate> 99 Electronically Signed By: Atif Caldwell
== END 2018-10-07 22:15 | disposition home or self-care (01) | DRG 832 ==
LOC: OBT 09:42 → L-D 09:42 → OBT 11:30 → L-D 12:48
PROVIDERS: ADMIT Obstetrics & Gynecology; ATTEND Obstetrics & Gynecology
DX: O23.03 Infections of kidney in pregnancy, third trimester (principal); O44.03 Complete placenta previa NOS or without hemorrhage, third trimester; N10 Acute pyelonephritis; Z3A.36 36 weeks gestation of pregnancy; B96.20 Unspecified Escherichia coli [E. coli] as the cause of diseases classified elsewhere
CPT/HCPCS: 71045; 76775; 76818; 80048; 80053; 80307; 81001; 83605; 85025; 87086; 93005; G0463; J0131; J0690; J0692; J0702; J2175; J7030; J7120

== ENCOUNTER 2018-10-08 17:56 | Outpatient (CLI) | payer OTHER ==
[~2018-10-08] VITALS: Ht 165.1 cm; Wt 93.2 kg
[~2018-10-08 17:56] MED LIST: PREN-93 PO
[2018-10-08 18:17] VITALS: Ht 165.1 cm; Wt 93.2 kg
[2018-10-08] MEDS ORDERED: BETAMET NA PHOS/AC(6 MG/ML) 2 ML INJ SYG IM ONE (18:30)
--- NOTE | 2018-10-08 19:57 | PN ---
Triage Information Date/Time Reason for visit: placenta previa Weeks of Gestation 36 weeks /Para Diabetes: none Hypertention: none Objective Heart Rate: 120's Heart Rate Comments Reactive Contractions: None Results/Medications Imaging Results [facility], [place] 11/16 Disposition: Discharge Assessment/Plan Patient received second dose of betamethasone Follow up with Dr Foster on 10/10/2018. YONY BARNES MD Oct 08, 2018 19:57
== END 2018-10-08 19:58 | disposition home or self-care (01) ==
LOC: OBT 17:56 → L-D 17:57 → OBT 19:58
PROVIDERS: ATTEND Obstetrics & Gynecology
DX: O62.9 Abnormality of forces of labor, unspecified (principal); Z3A.36 36 weeks gestation of pregnancy
CPT/HCPCS: 76818; J0702; Z7500; G0463

== ENCOUNTER 2018-10-11 10:37 | Inpatient (IN) | payer OTHER ==
[~2018-10-11] VITALS: Ht 162.6 cm; Wt 91.3 kg
[2018-10-11 11:23] VITALS: BP 123/76; PULSE 88; RESP 18; Ht 162.6 cm; Wt 91.3 kg
[2018-10-11] MEDS ORDERED: CARBOPROST 250 MCG INJ IM PRN ×2 (11:30→23:30)
[2018-10-11] MEDS ORDERED: CEFAZOLIN 2 GM/50 ML (PMX) 50 ML IVPB SCH (11:30)
[2018-10-11] MEDS ORDERED: OXYTOCIN 30 UNITS/LR 500 ML IV PRN ×2 (11:30→23:30)
[2018-10-11] MEDS ORDERED: MISOPROSTOL 200 MCG TAB PR PRN ×2 (11:30→23:30)
[2018-10-11] MEDS ORDERED: OXYTOCIN 30 UNITS/LR 500 ML IV SCH ×2 (11:30→23:13)
[2018-10-11] MEDS ORDERED: METHYLERGONOVINE 0.2 MG INJ IM PRN ×2 (11:30→23:30)
[2018-10-11] MEDS: LACTATED RINGER'S 1,000 ML IV SCH ×2 (11:58→16:56)
--- NOTE | 2018-10-11 12:53 | PREAC ---
Date/Time of Note Date/Time of Note DATE: 10/11/18 TIME: 12:52 Anesthesia Eval and Record Evaluation Time Pre-Procedure Interview DATE: 10/11/18 TIME: 12:52 Age 32 Sex female NPO: 8 hrs Preoperative diagnosis placenta previa Planned procedure c section Past Medical History Past Medical History: Includes Recreational drugs: Other (posititve for meth although patient denies ) Surgery & Anesthesia Issues No known issue Meds Anticoagulation: No Beta Adrián within 24 hr: No Reason Beta Adrián not given: Pt. not on B-Adrián Reported Medications Vit No.124/Iron/FA ( Vitamin Tablet) 1 Each Tablet, 1 EACH PO DAILY, TAB 10/05/18 Current Medications Lactated Ringer's 1,000 ml @ 125 mls/hr Q8H IV Last administered on 10/11/18at 11:58; Admin Dose 125 MLS/HR; Start 10/11/18 at 11:21 Cefazolin Sodium/ Dextrose 50 ml @ 100 mls/hr ONCE IVPB ; Start 10/11/18 at 11:30 Oxytocin/Lactated Ringer's 500 ml @ 125 mls/hr POST IV ; Start 10/11/18 at 11:30 Oxytocin/Lactated Ringer's 500 ml @ 0 mls/hr ONCE PRN IV .VAGINAL BLEEDING; Start 10/11/18 at 11:30 Methylergonovine Maleate (Methergine) 0.2 mg ONCE PRN IM .VAGINAL BLEEDING; Start 10/11/18 at 11:30 Carboprost Tromethamine (Hemabate) 250 mcg ONCE PRN IM .VAGINAL BLEEDING; Start 10/11/18 at 11:30 Misoprostol (Cytotec) 1,000 mcg ONCE PRN HI .VAGINAL BLEEDING; Start 10/11/18 at 11:30 Meds reviewed: Yes Allergies Coded Allergies: No Known Drug Allergy (Verified Allergy, Unknown, 10/08/18) Allergies Reviewed: Yes Labs/Studies Labs Reviewed: Reviewed by anesthesiologist Result Diagram: 10/11/18 1125 Laboratory Tests 10/11/18 11:25 Blood Bank Test 10/11/18 11:25 Antibody Screen NEGATIVE Blood Type A POSITIVE Rh Immune Globulin Candidate NO test: N/A Pre-procedure Exam Last vitals Vital Signs Date Temp Pulse Resp B/P (MAP) Pulse Ox O2 O2 Flow FiO2 Time Delivery Rate 10/11/18 98.1 88 18 123/76 99 Room Air 11:23 (92) Airway: Adequate mouth opening, Adequate thyromental dist Mallampati: Mallampati II Teeth: Normal Lung: Normal Heart: Normal ASA Physical Status ASA physical status: 3 Emergency: None Pre-operative Attestations Prior to commencing anesthesia and surgery, the patient was re-evaluated, there was verification of: *The patient's identity *The results of appropriate recent lab work and preoperative vital signs *The above evaluation not changing prior to induction *Anesthetic plan, risk benefits, alternative and complications discussed with patient/family; questions answered; patient/family understands, accepts and wishes to proceed. REBECCA ENCARNACION DO Oct 11, 2018 12:53
[2018-10-11] MEDS ORDERED: HYDROmorphONE 0.5 MG/0.5 ML SYG IV PRN ×2 (13:00)
[2018-10-11] MEDS ORDERED: ZOLPIDEM 5 MG TAB PO PRN (13:00)
[2018-10-11] MEDS ORDERED: NALOXONE (0.4 MG/ML) INJ IV PRN (13:00)
[2018-10-11] MEDS ORDERED: DIPHENHYDRAMINE 50 MG INJ IV PRN (13:00)
[2018-10-11] MEDS ORDERED: ONDANSETRON 4 MG INJ IV PRN (13:00)
--- NOTE | 2018-10-11 13:17 | HP ---
Date/Time of Note Date/Time of Note DATE: 10/11/18 TIME: 13:07 OB - History Hx of Present Free Text/Dictation 32 years old 4 para 3-0-0-3 with single intrauterine at 36 weeks and 5 days with 2 previous delivery, complete placenta previa admitted for repeat delivery. She states good movement. She denies nausea, vomiting, shortness of breath, chest pain, headache, visual changes, vaginal bleeding or LOF. Risk factors: 1. Previous delivery x2 2. Complete placenta previa with no evidence of placenta accreta 3. Pyelonephritis in current 4. Obesity 5. Noncompliance patient, she missed multiple 6. Tobacco use 7. Positive urine drug screen for amphetamine and methamphetamine early in 8. Rubella equivocal, will receive rubella vaccine after delivery Chief Complaint: Scheduled for repeat delivery Estimated Due Date: Nov 03, 2018 : 4 Para: 3 Spontaneous : 0 Therapeutic : 0 Care: Limited Care Ultrasounds: Normal mid trimester US Obstetrical Complications: Other (Please see the risk factors) Medical Complications: Other (Obesity) Past Family/Social History * Past Medical, Surgical, Family and Obstetric Histories reviewed from chart. Blood Type: A+ Rubella: not immune RPR/VDRL: Negative GBS Status: Unknown HBsAG: Negative OB Admission Exam Vital Signs Vital Signs Vital Signs Date Temp Pulse Resp B/P (MAP) Pulse Ox O2 O2 Flow FiO2 Time Delivery Rate 10/11/18 98.1 88 18 123/76 99 Room Air 11:23 (92) Physical Exam HEENT: WNL Heart: Rhythm Normal Lungs: Clear Abdomen: WNL Extremities: Normal Membranes: Intact Heart Rate: 130's Accelerations: Accelerations Present Decelerations: No Decelerations Varibility: Moderate Contractions on Admission: None Last 72 hours Lab Results CBC & BMP 10/11/18 11:25 OB Assessment/Plan Other plan: 32 years old 4 para 3-0-0-3 with single intrauterine at 36 weeks and 5 days with the 2 previous delivery, complete placenta previa with no evidence of placenta accreta admitted for repeat delivery -FHR: No sign of metabolic acidosis- Category I -Continuous EFM, toco -CBC, blood type and screen -Please see the orders -A+/Rubella: Equivocal -GBS: Not done, patient is noncompliant and missed last few visit 2. See risk factors The risk of delivery including but not limited to bleeding, infection, injury to other organs (bowel, bladder, ureter, vessels, nerves), injury to fetus, blood transfusion, blood transfusion related infection, risk of anesthesia, adhesion, needs for future , increases risk for especially with placenta removal of uterus previa and possible undiagnosed placenta accreta or any other indicated surgery was discussed with the patient and her family. She expressed understanding. All of her questions were answered. She signed the informed consent. PHYSICIAN'S VERIFICATION OF INFORMED CONSENT The patient and her family were counseled regarding the procedure, its indicati ons, risks, potential complications and alternatives and any questions were answered. Consent was obtained. PLANNED PROCEDURE/TREATMENT: delivery with possible using vacuum/forceps and any other indicated surgery PHYSICIAN'S VERIFICATION OF INFORMED CONSENT FOR BLOOD TRANSFUSION: There is a reasonable possibility that blood transfusion will be necessary as a result of the patient's procedure. I have discussed the following with the patient/patient's legal solar manufacturer's representative: An explanation of the benefits and risks of the transfusion of blood or blood products and the possible altern atives. All questions have been answered to the patient's satisfaction. INFORMED CONSENT:The patient has been informed of: The nature of the proposed care, treatment, services, medications, interven tions or procedures. Potential benefits, risks or side effects, including potential problems related to recuperation. The likelihood of achieving care treatment and service goals. Reasonable alternatives to the proposed care, treatment and service. The relevant risks, benefits and side effects related to alternatives, including the possible results of not receiving care, treatment and services. When indicated, any limitations on the confidentiality of information learned from or about the patient. If appropriate, the risks, benefits and alternatives of the drugs to be used for sedation/analgesia including moderate sedation. If appropriate, patient has been provided information on the risks, benefits and alternatives to the transfusion of blood and/or blood products. If appropriate, patient has been provided information regarding the Angelo Te[employer] Blood Act. JUSTEN JHAVERI Oct 11, 2018 13:17
[2018-10-11] MEDS ORDERED: morphine SULFATE/PF (10 MG/10 ML) INJ ONE (18:14)
[2018-10-11] MEDS ORDERED: DEXAMETHASONE 4 MG/ML 1 ML INJ ONE (18:25)
[2018-10-11] MEDS ORDERED: FAMOTIDINE 20 MG INJ ONE (18:26)
--- NOTE | 2018-10-11 20:04 | OPR ---
Operative Report Planned Procedure Procedure date Oct 11, 2018 Procedure(s) Repeat low transverse delivery Performed by see signature line Database Developer: GERALD MEJIA MD Anesthesiologist: REBECCA ENCARNACION DO Pre-procedure diagnosis 32 years old 4 para 3-0-0-3 with single intrauterine at 36 weeks and 5 days with 2 previous delivery and complete placenta previa [id number] Anesthesia Type: [id number] spinal Post-Procedure Post-procedure diagnosis 32 years old 4 para 3-0-0-3 with single intrauterine at 36 weeks and 5 days with 2 previous delivery, complete placenta previa, possible placental abruption and mono footling breech presentation Findings 1. Normal uterus, fallopian tubes and ovaries 2. Viable female in mono footling breech presentation. 8 at one minute and 9 in 5 minutes. Weight: 2505 g - 5 pound 8 ounces. Time of delivery: 18:53 3. Placenta with three vessel cord, there was some clot behind placenta 4. Amniotic fluid - Clear Estimated Blood Loss: 600 - 700 mls Specimen(s) Placenta Grafts/Implant(s) none Complication(s) none Pt Condition post procedure: stable Disposition: PACU Procedure Description INDICATION AND HISTORY: A 32 years old 4 para 3-0-0-3 with single intrauterine at 36 weeks and 5 days with 2 previous delivery and complete placenta previa. The risk of delivery including but not limited to bleeding, infection, injury to other organs (bowel, bladder, ureter, vessels, nerves), injury to fetus, blood transfusion, blood transfusion related infection, risk of anesthesia, adhesion, needs for future , removal of uterus or any other indicated surgery was discussed with the patient and her family. She expressed understanding. All of her questions were answered. She signed the informed consent. DESCRIPTION OF OPERATION: The patient was taken to the operating room, where she was identified and the procedure was verified. The patient received two gram of Ancef 30 minutes prior to surgery. Spinal anesthesia was placed anesthesiologist. The patient placed in the dorsal supine position with a left tilt. The heart rate was 130 bpm. The patient was then prepped and draped in the normal sterile fashion. A Pfannenstiel skin incision was made and carried down to the fascia with knife. The fascia was incised in the midline and the fascial incision was carried laterally with Lambert scissors. The superior portion of the fascial incision was then grasped with Sybil clamps and tented up and dissected off the underlying rectus muscle with sharp dissection. The lower portion of the fascial incision was then made in a similar fashion. The rectus muscle was and the peritoneum was entered. The peritoneal incision was then stretched and a bladder blade was inserted. Then, an incision was made in the lower uterine segment in a transverse fashion with a knife and extended bluntly. The was delivered atraumatically in double footling breech presentation with the ab ove findings. The umbilical cord was clamped and cut. The neonatology resuscitation team was present and the baby was handed to them. A cord blood sample was obtained for further evaluation. The placenta and membrane, which appeared normal were Removed. The uterus was exteriorized and cleared of all clot and debris. The uterus was then closed in a two layer fashion with 0-Mo nocryl. At the time of closure, hemostasis was noted. The gutters were irrigated. The peritoneum was reapproximated with 3-0 Vicryl. The muscle was reapproximated with 3-0 Vicryl. The fascia was approximated with 0-Vicryl in a running fashion. The subcutaneous tissue was re approximated with 3-0 vicryl. The skin was closed with 4-0 Monocryl. All instruments, sponges and needle counts were correct x3. The patient tolerated the procedure well. She transferred to the recovery room in stable condition. JUSTEN JHAVERI Oct 11, 2018 20:04
[2018-10-11] MEDS: KETOROLAC 30 MG INJ IV PRN (22:19)
[2018-10-11 22:45] VITALS: BP 127/61; PULSE 82; RESP 19
[2018-10-11] MEDS ORDERED: MAGNESIUM HYDROXIDE 30ML CUP PO PRN (23:30)
[2018-10-11] MEDS: SENNA/DOCUSATE NA (8.6MG/50MG) TAB PO SCH (23:30)
[2018-10-11] MEDS ORDERED: METHYLERGONOVINE 0.2 MG TAB PO PRN (23:30)
[2018-10-11] MEDS ORDERED: LANOLIN HPA 1 PKT TOP PRN (23:30)
[2018-10-12] VITALS: BP 109/59; PULSE 68; RESP 19
[2018-10-12 03:51] VITALS: BP 109/58; PULSE 60; RESP 19
[2018-10-12] MEDS: DEXTROSE 5%-LR 1,000 ML IV SCH ×3 (07:13→15:13)
[2018-10-12] MEDS: KETOROLAC 30 MG INJ IV PRN (08:37)
[2018-10-12 08:40] VITALS: BP 107/57; PULSE 56; RESP 20
[2018-10-12] MEDS: SENNA/DOCUSATE NA (8.6MG/50MG) TAB PO SCH ×2 (09:00→21:30)
[2018-10-12] MEDS ORDERED: DIPHTH/TET/ACEL PERTUSS (ADULT) 0.5 ML VIAL IM* ONE (11:00)
[2018-10-12] MEDS ORDERED: HYDROCODONE/APAP (5/325) TAB NGT PRN (13:00)
[2018-10-12] MEDS: IBUPROFEN 800 MG TAB PO SCH ×2 (13:47→21:30)
[2018-10-12] MEDS: HYDROCODONE/APAP (5/325) TAB PO SCH ×2 (13:47→21:30)
[2018-10-12 15:30] VITALS: BP 105/52; PULSE 85; RESP 18
[2018-10-12 19:45] VITALS: BP 115/57; PULSE 95; RESP 19
--- NOTE | 2018-10-12 22:49 | PN ---
Date/Time of Note Date/Time of Note DATE: 10/12/18 TIME: 22:46 OB Subjective Subjective Subjective Reports decreased vaginal bleeding. Has not been out of the bed yet. SCDs are on. Had nausea yesterday but improved today. Tolerating clear liquid diet. Has not passed flatus yet. OB Objective Objective Objective General appearance: Alert and oriented x4. Does not appear to be in acute distress, obese Abdomen: Soft, fundus palpable 1 to 2 cm below the umbilicus. Appropriate tenderness in the incision noted. Dressing clean dry and intact Lungs: Clear to auscultation bilaterally CV: RRR Extremities: No calf tenderness, no click no edema no cord palpable, extremities: VS - Last 72 Hours, by Label Date Temp Pulse Resp B/P (MAP) Pulse Ox O2 O2 Flow FiO2 Time Delivery Rate 10/12/18 98.0 95 19 115/57 Room Air 19:45 (76) 10/12/18 98.2 85 18 105/52 Room Air 15:30 (69) 10/12/18 98.7 56 20 107/57 Room Air 08:40 (74) 10/12/18 98.6 60 19 109/58 98 Room Air 03:51 (75) 10/12/18 98.2 68 19 109/59 97 Room Air 00:00 (76) 10/11/18 98.4 82 19 127/61 99 Room Air 22:45 (83) 10/11/18 98.1 88 18 123/76 99 Room Air 11:23 (92) Laboratory Tests Test 10/12/18 04:51 10/12/18 07:20 White Blood Count 16.0 #H Red Blood Count 3.99 L Hemoglobin 11.7 L Hematocrit 34.8 L Mean Corpuscular Volume 87.2 Mean Corpuscular Hemoglobin 29.3 Mean Corpuscular Hemoglobin Concent 33.6 Red Cell Distribution Width 12.7 Platelet Count 260 Mean Platelet Volume 9.8 Immature Granulocytes % 1.600 H Neutrophils % 83.4 H Lymphocytes % 10.4 L Monocytes % 4.2 Eosinophils % 0.1 Basophils % 0.3 Nucleated Red Blood Cells % 0.0 Immature Granulocytes # 0.260 H Neutrophils # 13.4 H Lymphocytes # 1.7 Monocytes # 0.7 Eosinophils # 0.0 Basophils # 0.1 Nucleated Red Blood Cells # 0.0 Lab Scanned Report REFERENCE LAB OB Assessment/Plan Other Assessment: Postoperative day #1 Status post repeat section due to contractions and placenta previa At 36 weeks and 5 days Improving DC Esposito after 24 hours if adequate urine output Encourage incentive spirometer Ambulation Advance diet Routine /postop care KERI PINEDA MD Oct 12, 2018 22:49
--- NOTE | 2018-10-12 23:10 | DELSUM ---
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 Babies in Womb: 1 Attempted: No Labor Anesthesia: None LABOR INFORMATION Reason for Induction: Not Applicable Group B Beta Strep: Not Done Antibiotics # of Doses: 1 Antibiotics Time of Last Dose: 10/11/2018 18:30 Steroids Given: None Reason Steroids Not Administered: Not Applicable MEMBRANES Membranes Rupture Method: Artificial Rupture of Membranes: 10/11/2018 18:52 Length of Rupture (hr): 0.02 Amniotic Fluid Color: Clear Amniotic Fluid Amount: Small Amniotic Fluid Odor: None STAGES OF LABOR Stage 3 hr: 0 Stage 3 min: 1 CSECTION DELIVERY Primary Indication: Repeat Elective Secondary Indication: Placenta Previa CSection Urgency: Elective CSection Incidence: Repeat Labor: Labor Elective: Elective CSection Incision: Lower Uterine Transverse BABY A INFORMATION Infant Delivery Date/Time: 10/11/2018 18:53 Method of Delivery: Born in Route : No : N/A Forceps: N/A Vacuum Extraction: N/A Shoulder Dystocia : N/A SHOULDER DYSTOCIA BABY A Delivery Date/Time: 10/11/2018 18:53 PRESENTATION/POSITION BABY A Presentation: Breech Cephalic Presentation: N/A Breech Presentation: Double Footling PLACENTA INFORMATION BABY A Placenta Delivery Time : 10/11/2018 18:54 Placenta Method of Delivery: Manual Removal Placenta Status: Delivered SCORES BABY A Heart Rate 1 min: >100 bpm Resp Effort 1 min: Good Cry Reflex Irritability 1 min: Cough/Sneeze/Pulls Away Muscle Tone 1 min: Active Motion Color 1 min: Body [place], Extremit Blue Resuscitation Effort 1 min: Tactile Stimulation SCORE 1 MIN: 9 Heart Rate 5 min: >100 bpm Resp Effort 5 min: Good Cry Reflex Irritability 5 min: Cough/Sneeze/Pulls Away Muscle Tone 5 min: Active Motion Color 5 min: Body [place], Extremit Blue Resuscitation Effort 5 min: Tactile Stimulation SCORE 5 MIN: 9 INFORMATION BABY A Gestational Age at Delivery: 36.5 Gestational Status: Late - 34- 36.6 Weeks Infant Outcome : Liveborn, with signs of life Infant Condition : Stable Sex: Female IDENTIFICATION/MEDS BABY A ID Band Number: [id number] ID Band Location: Right Leg; Left Arm Sensor Applied: Yes Sensor Number: [id number] Sensor Location : Cord Clamp Vitamin K Given : Not Given Erythromycin Given: Not Given WEIGHT/LENGTH BABY A Infant Birthweight (gm): 2505 Infant Weight (lb): 5 Infant Weight (oz): 8 Infant Length (in): 19.00 Length (cm): 48.26 CORD INFORMATION BABY A No. Cord Vessels: 3 Nuchal Cord : N/A Cord Blood Taken: Yes Infant Suction: Mouth; Nose ASSESSMENT BABY A Complications: None Physical Findings at Delivery: Within Normal Limits Infant Respirations: Appears Normal Teletypewriter Installer/ALS Called : No Infant Care By: VALENTINO KAPLAN Transferred To: Remains with Mother
[2018-10-13 03:45] VITALS: BP 105/55; PULSE 100; RESP 20
[2018-10-13] MEDS: HYDROCODONE/APAP (5/325) TAB PO SCH ×3 (05:37→21:33)
[2018-10-13] MEDS: IBUPROFEN 800 MG TAB PO SCH ×3 (05:37→21:32)
[2018-10-13 08:00] VITALS: BP 97/58; PULSE 88; RESP 18
[2018-10-13] MEDS: SENNA/DOCUSATE NA (8.6MG/50MG) TAB PO SCH ×2 (08:45→21:32)
[2018-10-13 16:00] VITALS: BP 148/52; PULSE 52; RESP 18
[2018-10-13] MEDS: FERROUS SULFATE (EC) 325 MG TAB PO SCH (18:14)
[2018-10-13] MEDS: CEPHALEXIN 500 MG CAP PO SCH (18:14)
[2018-10-13] MEDS: PRENATAL VITAMIN PO SCH (18:14)
[2018-10-13 20:00] VITALS: BP 115/61; PULSE 71; RESP 20
[2018-10-14 05:05] VITALS: BP 121/61; PULSE 78; RESP 20
[2018-10-14] MEDS: IBUPROFEN 800 MG TAB PO SCH ×2 (05:36→13:39)
[2018-10-14] MEDS: HYDROCODONE/APAP (5/325) TAB PO SCH ×2 (05:36→13:40)
[2018-10-14 08:40] VITALS: BP 119/63; PULSE 90; RESP 18
[2018-10-14] MEDS ORDERED: DIPHTH/TET/ACEL PERTUSS (ADULT) 0.5 ML VIAL IM* ONE (09:00)
[2018-10-14] MEDS ORDERED: MEASLES,MUMPS,RUBELLA VACCINE INJ SC* ONE (09:00)
[2018-10-14] MEDS: FERROUS SULFATE (EC) 325 MG TAB PO SCH (09:03)
[2018-10-14] MEDS: PRENATAL VITAMIN PO SCH (09:03)
[2018-10-14] MEDS: CEPHALEXIN 500 MG CAP PO SCH (09:04)
[2018-10-14] MEDS: SENNA/DOCUSATE NA (8.6MG/50MG) TAB PO SCH (09:04)
[2018-10-14 16:30] VITALS: BP 126/61; PULSE 92; RESP 18
--- NOTE | 2018-10-14 18:34 | DS ---
Date/Time of Note Date/Time of Note DATE: 10/14/18 TIME: 18:34 Obstetrical Discharge Record Final Diagnosis Final Diagnosis: delivered Other Final Diagnosis Subjective: Patient without complaints. Tolerating a regular diet. Breast- feeding. Lochia within normal limits. + ambulating. + Flatus. Objective: Vital signs within normal limits. H/H: 11.7/34.8 General: No apparent distress. Cardio: RRR Pulm:CTAB Abdomen: Fundus firm two fingerbreadths below umbillicus Incision: C/D/I Extremities nontender to palpation. Assessment/plan: 1. day #3. Patient presented at 6 weeks and 5 days on 10/11/2018 with complete placenta previa. She was admitted for repeat section given she had had a previous section. She underwent a low section on 06/2018. Her hospital course was uncomplicated. 2. Anemia acute blood loss-ferrous sulfate. Disposition: Discharged home in stable condition with follow-up in 1 week Condition on Discharge Physical Assessment Patient Condition: Stable MILESTONE,MARTHA ADAMS Oct 14, 2018 18:34
== END 2018-10-14 19:30 | disposition home or self-care (01) | DRG 787 ==
LOC: L-D 10:37 → MS1 23:09
PROVIDERS: ADMIT Obstetrics & Gynecology; ATTEND Obstetrics & Gynecology
PROC: 4A1HXCZ Monitoring of Products of Conception, Cardiac Rate, External Approach (ICD-10-PCS; 2018-10-11)
PROC: 10D00Z1 Extraction of Products of Conception, Low, Open Approach (ICD-10-PCS; principal; 2018-10-11 12:30)
PROC: 3E0234Z Introduction of Serum, Toxoid and Vaccine into Muscle, Percutaneous Approach (ICD-10-PCS; 2018-10-14)
DX: O34.211 Maternal care for low transverse scar from previous cesarean delivery (principal); O44.03 Complete placenta previa NOS or without hemorrhage, third trimester; D62 Acute posthemorrhagic anemia; O32.8XX0 Maternal care for other malpresentation of fetus, not applicable or unspecified; O99.334 Smoking (tobacco) complicating childbirth; F17.200 Nicotine dependence, unspecified, uncomplicated; O99.214 Obesity complicating childbirth; Z91.19 Patient's noncompliance with other medical treatment and regimen; O90.81 Anemia of the puerperium; Z3A.36 36 weeks gestation of pregnancy; Z37.0 Single live birth; Z23 Encounter for immunization
CPT/HCPCS: 80307; 85025; 85610; 85730; 86592; 86850; 86900; 86901; 87340; 88307; 90715; 99464; J1100; J1885; J2274; J2405; J2590; J3010; J7120; J7121